=== PATIENT | male | born 1965 | race Caucasian/White ===

== ENCOUNTER 2020-01-27 17:19 | Inpatient (IN) | payer SELFPAY ==
[~2020-01-27] VITALS: Ht 182.9 cm; Wt 148.8 kg
[2020-01-27 17:19] VITALS: BP_SYST 165
[2020-01-27 18:16] LABS: BILIRUBIN,URINE NEGATIVE (NEGATIVE); COLOR,URINE YELLOW (YELLOW); GLUCOSE,URINE NEGATIVE (NEGATIVE); KETONES,URINE NEGATIVE (NEGATIVE); LEUKOCYTE ESTERASE ,URINE NEGATIVE (NEGATIVE); NITRITE, URINE NEGATIVE (NEGATIVE); PROTEIN URINE 3+ (NEGATIVE)
[2020-01-27 18:23] LABS: BLOOD, URINE TRACE (NEGATIVE)
[2020-01-27 18:28] LABS: BASOPHILS # (AUTO) 0.1 K/uL (0.0-0.2); BASOPHILS % (AUTO) 0.9 % (0.0-2.0); EOSINOPHILS # (AUTO) 0.2 K/uL (0.0-0.4); EOSINOPHILS % (AUTO) 2.3 % (0.0-4.0); HEMATOCRIT 42.2 % (36-54); HEMOGLOBIN 13.9 g/dL (14.0-18.0); LYMPHOCYTES # (AUTO) 1.6 K/uL (1.0-5.5); LYMPHOCYTES % (AUTO) 17.7 % (20.5-51.5); MEAN CORPUSCULAR HEMOGLOBIN 27 pg (27-31); MEAN CORPUSCULAR HGB CONC 33 % (32-36); MEAN CORPUSCULAR VOLUME 83 fL (79.0-98.0); MONOCYTES # (AUTO) 0.8 K/uL (0.0-1.0); MONOCYTES % (AUTO) 8.5 % (1.7-9.3); NEUTROPHILS # (AUTO) 6.5 K/uL (1.8-7.7); NEUTROPHILS % (AUTO) 70.6 % (40.0-70.0); PLATELET COUNT (AUTO) 208 K/uL (130-430); RED BLOOD CELL COUNT(AUTO) 5.09 MIL/uL (4.2-6.2); RED CELL DISTRIBUTION WIDTH 16.6 % (9.0-15.0); WHITE BLOOD COUNT (AUTO) 9.2 K/uL (4.8-10.8)
[2020-01-27] MEDS ORDERED: LABETALOL 100 MG/ 20ML VIAL IVP ONE (18:30)
[2020-01-27 18:33] LABS: BARBITURATE, URINE NEGATIVE (NEG <=200); BENZODIAZEPINE, URINE NEGATIVE (NEG <=150); CANNABINOID, URINE POSITIVE (NEG <=50); COCAINE, URINE NEGATIVE (NEG <=150); METHAMPHETAMINES SCREEN,URINE POSITIVE (NEG <=500); OPIATE, URINE NEGATIVE (NEG <=100); PHENCYCLIDINE SCREEN,URINE NEGATIVE (NEG <=25); UR TRICYCLIC ANTIDEPRESSANTS NEGATIVE (NEG <=300); URINE AMPHETAMINE POSITIVE (NEG <=500); URINE METHADONE NEGATIVE (NEG <=200); URINE OXYCODONE SCREEN NEGATIVE (NEG <=100); URINE PROPOXYPHENE SCREEN NEGATIVE (NEG <=300)
[2020-01-27 18:47] LABS: CALCIUM 9.2 mg/dL (8.4-11.0); CREATININE 1.77 mg/dL (0.55-1.30); POTASSIUM 3.1 mmol/L (3.5-5.1)
[2020-01-27 18:53] LABS: BACTERIA,URINE FEW /HPF (None Seen); CLARITY/URINE CLEAR (CLEAR); RBC,URINE 0-3 /HPF (0-3); WBC,URINE 0-3 /HPF (0-3)
[2020-01-27 18:54] LABS: MUCUS,URINE None Seen /LPF (None Seen)
[2020-01-27 18:58] LABS: ALBUMIN 3.2 g/dL (3.4-4.8); TOTAL BILIRUBIN 1.1 mg/dL (0.0-1.0)
[2020-01-27] MEDS ORDERED: POTASSIUM CHLORIDE 20 MEQ TAB.PRT.SR PO ONE (19:00)
[2020-01-27 19:02] LABS: INR 1.3 (0.80-1.20); PROTHROMBIN TIME 12.5 SECS (9.5-12.5)
[2020-01-27] MEDS ORDERED: METOPROLOL TARTRATE 25 MG TABLET PO ONE (19:30)
[2020-01-27] MEDS ORDERED: ASPIRIN 325 MG TABLET (ECOTRIN) PO ONE (19:30)
[2020-01-27 20:55] VITALS: BP_SYST 136
[2020-01-28 00:05] VITALS: BP_SYST 121
[2020-01-28 08:01] VITALS: BP_SYST 154
[2020-01-28] MEDS ORDERED: METOPROLOL TARTRATE 25 MG TABLET PO SCH (09:00)
[2020-01-28] MEDS ORDERED: CARVEDILOL 12.5 MG TABLET (COREG) PO ONE (09:45)
[2020-01-28] MEDS ORDERED: FUROSEMIDE 40 MG/4 ML VIAL IVP ONE (09:45)
[2020-01-28] MEDS ORDERED: LISINOPRIL 20 MG TABLET PO ONE (09:45)
[2020-01-28 11:29] VITALS: BP_SYST 134
[2020-01-28 15:57] VITALS: BP_SYST 145
[2020-01-28] MEDS ORDERED: ASPIRIN 325 MG TABLET (ECOTRIN) PO ONE (18:30)
[2020-01-28 20:00] VITALS: BP_SYST 117
[2020-01-28] MEDS: POTASSIUM CHLORIDE 20 MEQ/PKT PACKET PO SCH (20:30)
[2020-01-28] MEDS: CARVEDILOL 12.5 MG TABLET (COREG) PO SCH (20:32)
[2020-01-28] MEDS: FUROSEMIDE 40 MG/4 ML VIAL IVP SCH (20:33)
[2020-01-29 01:15] VITALS: BP_SYST 130
[2020-01-29 06:51] LABS: BASOPHILS # (AUTO) 0.1 K/uL (0.0-0.2); BASOPHILS % (AUTO) 0.8 % (0.0-2.0); EOSINOPHILS # (AUTO) 0.2 K/uL (0.0-0.4); EOSINOPHILS % (AUTO) 2.4 % (0.0-4.0); HEMATOCRIT 39.9 % (36-54); HEMOGLOBIN 12.8 g/dL (14.0-18.0); LYMPHOCYTES # (AUTO) 1.5 K/uL (1.0-5.5); LYMPHOCYTES % (AUTO) 18.5 % (20.5-51.5); MEAN CORPUSCULAR HEMOGLOBIN 27 pg (27-31); MEAN CORPUSCULAR HGB CONC 32 % (32-36); MEAN CORPUSCULAR VOLUME 84 fL (79.0-98.0); MONOCYTES # (AUTO) 0.6 K/uL (0.0-1.0); NEUTROPHILS # (AUTO) 5.6 K/uL (1.8-7.7); NEUTROPHILS % (AUTO) 70.3 % (40.0-70.0); PLATELET COUNT (AUTO) 211 K/uL (130-430); RED BLOOD CELL COUNT(AUTO) 4.74 MIL/uL (4.2-6.2); RED CELL DISTRIBUTION WIDTH 16.9 % (9.0-15.0)
[2020-01-29 07:25] LABS: ALBUMIN 2.9 g/dL (3.4-4.8); CALCIUM 8.6 mg/dL (8.4-11.0); CREATININE 2.08 mg/dL (0.55-1.30); POTASSIUM 3.2 mmol/L (3.5-5.1); THYROID STIMULATING HORMONE 1.11 uIu/mL (0.34-4.82); TOTAL BILIRUBIN 0.8 mg/dL (0.0-1.0)
[2020-01-29 08:00] VITALS: BP_SYST 117
[2020-01-29] MEDS: POTASSIUM CHLORIDE 20 MEQ/PKT PACKET PO SCH ×2 (09:15→21:19)
[2020-01-29] MEDS: SPIRONOLACTONE 25 MG TABLET (ALDACTONE) PO SCH (09:15)
[2020-01-29] MEDS: LISINOPRIL 20 MG TABLET PO SCH (09:15)
[2020-01-29] MEDS: ASPIRIN 325 MG TABLET (ECOTRIN) PO SCH (09:15)
[2020-01-29] MEDS: CARVEDILOL 12.5 MG TABLET (COREG) PO SCH ×2 (09:16→21:19)
[2020-01-29] MEDS: FUROSEMIDE 40 MG/4 ML VIAL IVP SCH ×2 (09:17→21:19)
[2020-01-29 11:35] VITALS: BP_SYST 118
[2020-01-29 15:54] VITALS: BP_SYST 93
[2020-01-29 20:00] VITALS: BP_SYST 130
[2020-01-29] MEDS ORDERED: METOLAZONE 2.5 MG TABLET PO ONE (21:15)
[2020-01-30 01:01] VITALS: BP_SYST 111
[2020-01-30 06:12] LABS: BASOPHILS # (AUTO) 0.1 K/uL (0.0-0.2); BASOPHILS % (AUTO) 0.8 % (0.0-2.0); EOSINOPHILS # (AUTO) 0.2 K/uL (0.0-0.4); EOSINOPHILS % (AUTO) 2.4 % (0.0-4.0); HEMOGLOBIN 13.6 g/dL (14.0-18.0); LYMPHOCYTES # (AUTO) 1.6 K/uL (1.0-5.5); LYMPHOCYTES % (AUTO) 20.5 % (20.5-51.5); MEAN CORPUSCULAR HEMOGLOBIN 27 pg (27-31); MEAN CORPUSCULAR HGB CONC 32 % (32-36); MEAN CORPUSCULAR VOLUME 84 fL (79.0-98.0); MONOCYTES # (AUTO) 0.6 K/uL (0.0-1.0); MONOCYTES % (AUTO) 8.2 % (1.7-9.3); NEUTROPHILS # (AUTO) 5.2 K/uL (1.8-7.7); NEUTROPHILS % (AUTO) 68.1 % (40.0-70.0); PLATELET COUNT (AUTO) 221 K/uL (130-430); RED BLOOD CELL COUNT(AUTO) 5.03 MIL/uL (4.2-6.2); RED CELL DISTRIBUTION WIDTH 17.1 % (9.0-15.0); WHITE BLOOD COUNT (AUTO) 7.6 K/uL (4.8-10.8)
[2020-01-30 07:07] LABS: ALBUMIN 3.1 g/dL (3.4-4.8); CALCIUM 9.2 mg/dL (8.4-11.0); CREATININE 2.09 mg/dL (0.55-1.30); POTASSIUM 3.7 mmol/L (3.5-5.1); TOTAL BILIRUBIN 0.8 mg/dL (0.0-1.0)
[2020-01-30 08:00] VITALS: BP_SYST 127
[2020-01-30] MEDS: CARVEDILOL 12.5 MG TABLET (COREG) PO SCH ×2 (08:48→20:36)
[2020-01-30] MEDS: SPIRONOLACTONE 25 MG TABLET (ALDACTONE) PO SCH ×2 (08:48→20:35)
[2020-01-30] MEDS: ASPIRIN 325 MG TABLET (ECOTRIN) PO SCH (08:48)
[2020-01-30] MEDS: POTASSIUM CHLORIDE 20 MEQ/PKT PACKET PO SCH ×2 (08:49→20:35)
[2020-01-30] MEDS: LISINOPRIL 20 MG TABLET PO SCH (08:49)
[2020-01-30] MEDS: FUROSEMIDE 40 MG/4 ML VIAL IVP SCH (08:49)
[2020-01-30] MEDS ORDERED: METOLAZONE 2.5 MG TABLET PO ONE (10:00)
[2020-01-30 12:00] VITALS: BP_SYST 105
[2020-01-30 16:17] VITALS: BP_SYST 112
[2020-01-30 20:00] VITALS: BP_SYST 98
[2020-01-30] MEDS: FUROSEMIDE 40 MG TABLET PO SCH (20:35)
[2020-01-31 07:47] VITALS: BP_SYST 129
[2020-01-31] MEDS: FUROSEMIDE 40 MG TABLET PO SCH (08:41)
[2020-01-31] MEDS: SPIRONOLACTONE 25 MG TABLET (ALDACTONE) PO SCH (08:42)
[2020-01-31] MEDS: CARVEDILOL 12.5 MG TABLET (COREG) PO SCH (08:43)
[2020-01-31] MEDS: LISINOPRIL 20 MG TABLET PO SCH (08:43)
[2020-01-31] MEDS: POTASSIUM CHLORIDE 20 MEQ/PKT PACKET PO SCH (08:43)
[2020-01-31] MEDS: ASPIRIN 325 MG TABLET (ECOTRIN) PO SCH (08:43)
[2020-01-31] MEDS ORDERED: METOLAZONE 2.5 MG TABLET PO SCH (09:00)
[2020-01-31 12:00] VITALS: BP_SYST 118
[2020-01-31 12:22] VITALS: BP_SYST 118
== END 2020-01-31 13:30 | disposition home or self-care (01) | DRG 291 ==
LOC: SED 17:19 → STU 19:22
PROVIDERS: ADMIT Internal Medicine Hospice and Palliative Medicine; ATTEND Internal Medicine Hospice and Palliative Medicine
DX: I13.0 Hypertensive heart and chronic kidney disease with heart failure and stage 1 through stage 4 chronic kidney disease, or unspecified chronic kidney disease (principal); I50.21 Acute systolic (congestive) heart failure; I24.8 Other forms of acute ischemic heart disease; Z68.41 Body mass index [BMI] 40.0-44.9, adult; F15.10 Other stimulant abuse, uncomplicated; I42.7 Cardiomyopathy due to drug and external agent; E66.01 Morbid (severe) obesity due to excess calories; F17.210 Nicotine dependence, cigarettes, uncomplicated; N18.9 Chronic kidney disease, unspecified; T43.625A Adverse effect of amphetamines, initial encounter; Y92.89 Other specified places as the place of occurrence of the external cause; Z87.442 Personal history of urinary calculi
CPT/HCPCS: 36415; 71045; 76770; 80053; 80307; 81000-TC; 83605; 83880; 84443-TC; 84484; 85025; 85610-TC; 85730-TC; 87040-TC; 87086; 93005; 93306; 96374; 99285; G0378; J1940; J3490